=== PATIENT | male | born 1975 | race Caucasian/White ===

== ENCOUNTER 2016-08-28 05:42 | Observation (INO) ==
[2016-08-28] MEDS ORDERED: LR 1,000 ML ONE ×3 (05:56→11:00)
[2016-08-28] MEDS ORDERED: AFRIN NASAL SPRAY ONE (06:13)
[2016-08-28] MEDS ORDERED: BACTROBAN OINTMENT ONE (06:13)
[2016-08-28] MEDS ORDERED: XYLOCAINE 1%/EPI 1:100,000 ONE (06:13)
[2016-08-28] MEDS ORDERED: CLINDAMYCIN ONE (06:13)
[2016-08-28] MEDS ORDERED: NS 1,000 ML ONE (06:14)
[2016-08-28] MEDS ORDERED: REGLAN ONE (06:28)
[2016-08-28] MEDS ORDERED: PEPCID ONE (06:28)
[2016-08-28] MEDS ORDERED: NAROPIN 0.2% ONE (06:49)
[2016-08-28] MEDS ORDERED: BSS OPHTH SOLN ONE (06:50)
[2016-08-28] MEDS ORDERED: CLINDAMYCIN 600 MG/NS 600 MG/50 ML IVPB ONE (07:38)
[2016-08-28] MEDS ORDERED: FENTANYL ONE ×2 (10:45)
[2016-08-28] MEDS ORDERED: VERSED ONE (10:46)
[2016-08-28] MEDS ORDERED: DIPRIVAN 1% ONE (10:46)
[2016-08-28] MEDS ORDERED: LABETALOL (DOSE) ONE ×2 (10:59→14:30)
[2016-08-28] MEDS ORDERED: NEOSTIGMINE ONE (10:59)
[2016-08-28] MEDS ORDERED: LUBRIFRESH PM OPH OINTMENT ONE (10:59)
[2016-08-28] MEDS ORDERED: ZOFRAN ONE (11:00)
[2016-08-28] MEDS ORDERED: ROBINUL ONE (11:00)
[2016-08-28] MEDS ORDERED: XYLOCAINE-MPF 2% ONE (11:00)
[2016-08-28] MEDS ORDERED: QUELICIN (DOSE) ONE (11:00)
[2016-08-28] MEDS ORDERED: DECADRON ONE (11:00)
[2016-08-28] MEDS ORDERED: ZEMURON ONE (11:00)
[2016-08-28] MEDS ORDERED: PHENERGAN ONE (11:00)
[2016-08-28] MEDS ORDERED: APRESOLINE IV PRN (12:47)
[2016-08-28] MEDS: OXY IR PO SCH ×3 (12:51→21:15)
[2016-08-28] MEDS: LR 1,000 ML IV SCH ×2 (13:04→22:29)
--- NOTE | 2016-08-28 13:14 | OPERATIVE NOTE ---
PROCEDURE DATE: 08/28/2016 DATE OF SURGERY: 08/28/2016. PREOPERATIVE DIAGNOSES: 1. Obstructive sleep apnea. 2. Deviated nasal septum. 3. Turbinate hypertrophy. 4. Hypertension. POSTOPERATIVE DIAGNOSES: 1. Obstructive sleep apnea. 2. Deviated nasal septum. 3. Turbinate hypertrophy. 4. Hypertension. PROCEDURE: 1. Nasal septoplasty. 2. Bilateral inferior turbinate submucosal resection. 3. Uvulopalatopharyngoplasty, no complications. ANESTHESIA: General with endotracheal intubation. FINDINGS: 1+ tonsils. DESCRIPTION OF PROCEDURE: The patient was identified, consented, brought to the operating room, placed in supine position where general anesthesia was induced with endotracheal intubation. McIvor mouth gag was placed. The knee was prepped and draped in the usual sterile fashion for tonsillectomy. Right tonsil was grasped with a curved Allis clamp. Medial traction was applied. Anterior mucosal incision performed through which a capsule dissection facilitated removal of the tonsil tissue. Meticulous attention was paid to hemostasis using electrocautery, as well as removal of entire tonsil tissue and preservation of the anterior and posterior tonsil pillar musculature. Contralateral tonsillectomy was performed in similar fashion. The palate was then incised from the apex of the tonsil pillar on the right across to the left, sparing the mucosa enough to prevent velopharyngeal insufficiency. The uvula and the rim of mucosa was removed with downward beveled to preserve more posterior mucosa. The mucosal edges were closed with 4-0 Vicryl simple interrupted stitches from the apex of 1 tonsil across the palate to the other. Ropivacaine was injected into the entire region. Next, the patient was prepped and draped in usual sterile fashion for nasal septoplasty. Lidocaine 1% and 1:100,000 epinephrine was injected into the septal mucosa bilaterally in the inferior turbinate leading edge bilaterally. Left hemitransfixion incision was performed through which bilateral submucoperichondrial flap was elevated off the cartilage. Significant subluxation was corrected with a swinging door technique and mobilization of the caudal cartilage off the maxillary crest and back to the midline. The central septal bony septum was returned to the midline with a combination of techniques, including excision of spur and mobilization of the bone, taking care not to rock the superior portion of the perpendicular plate of the ethmoid. Once this was achieved, the caudal septum was buried between the medial crura and precisely carved pocket. This was stabilized using a 4-0 plain stitch. The inferior turbinate on the left was incised anteriorly and a submucosal microdebrider technique was used to remove an adequate amount of stroma and inferior turbinate bone from the anterior 50% of the inferior turbinate medial and inferior aspect. Outfracture of the turbinate was then performed. Similar process was repeated on the contralateral inferior turbinate with submucosal resection and outfracture as well. Gore splints were applied, one on either side of the septum, and secured with 3-0 transeptal nylon stitch. He tolerated the procedure well. Ointment was applied. He was allowed to recover from anesthesia and transferred to the recovery room in stable condition. cc: Loc Gray MD
[2016-08-28 14:08] LABS: HEMATOCRIT 43.7 % (42.0-52.0); HEMOGLOBIN 15.1 g/dL (14.0-18.0); MCH 30.1 PG (27-31); MCHC 34.6 g/dL (33-37); MCV 87.1 FL (81-99); MPV 10.2 FL (7.4-10.4); RBC 5.02 XMIL (4.7-6.1)
[2016-08-28 14:20] LABS: INR 1.03; PROTIME 10.8 Seconds (9.2-11.7)
[2016-08-28] MEDS ORDERED: APRESOLINE ONE (14:31)
[2016-08-28 14:40] LABS: AGAP 13; ALBUMIN 4.4 g/dL (3.5-5.0); ALKALINE PHOSPHATASE 54 U/L (32-122); BUN 13 mg/dL (8-22); CALCIUM 9.3 mg/dL (8.8-10.2); CHLORIDE 95 mmol/L (98-107); COSMO 270; GOT 38 U/L (10-34); GPT 69 U/L (10-44); POTASSIUM 4.1 mmol/L (3.5-5.1); SODIUM 134 mmol/L (136-145); TCO2 26 mmol/L (25-35); TOTAL BILIRUBIN 0.38 mg/dL (0.20-1.00); TOTAL PROTEIN 6.8 g/dL (6.3-8.3)
--- NOTE | 2016-08-28 15:14 | CONSULTATION ---
DATE OF CONSULTATION: 08/28/2016 DATE OF CONSULTATION: 08/28/2016. CONSULTING PHYSICIAN: Dr. Loc Gray. CONSULTING REASON: Medical management. HISTORY OF PRESENT ILLNESS: Mr. Fisher is a 41-year-old male with a history of hypertension, GERD, hyperlipidemia, and sleep apnea who underwent a UP3 and nasal surgery today by Dr. Gray. He was subsequently placed in the ICU for precaution. He has asked us to follow along for medical management, specifically hypertension management. Currently patient's blood pressure is 122/74, the patient is resting in bed comfortably without any acute distress, his pain is controlled well with pain medications. Surgery was done without complication, he is hemodynamically stable. Prior to surgery he had no complaints. PAST MEDICAL HISTORY: 1. Hypertension. 2. GERD. 3. Hyperlipidemia. 4. Obstructive sleep apnea. PAST SURGICAL HISTORY: He has had a vasectomy. SOCIAL HISTORY: He drinks 1 drink a day. He has no history of alcohol or drug use. He is . is at the bedside. He works at [employer]. FAMILY HISTORY: Noncontributory. HOME MEDICATIONS: Lipitor 20 mg daily. Vibramycin 100 mg b.i.d. Nexium 40 mg daily. Lisinopril 10 mg p.o. daily. ALLERGIES: No known drug allergies. REVIEW OF SYSTEMS: Fourteen-point review of systems obtained and found to be negative with the exception of the HPI. PHYSICAL EXAMINATION: Vital Signs: Blood pressure is 122/74, heart rate is 86, respiratory rate 22, oxygen saturation is 96% on room air, temperature is 97.6 degrees. General: This is a well- developed, well-nourished, male, lying in hospital bed in no acute distress. Neurologic: The patient is awake, alert, and oriented. Follows commands without focal deficits. HEENT: Head is atraumatic, normocephalic. Pupils equal, round, reactive to light. Oral mucosa is moist. Nasal packing and gauze clean, dry, and intact. Neck: Supple. Trachea is midline. Chest: Clear to auscultation bilaterally. CV: Regular rate and rhythm. S1-S2 is noted. No murmurs, gallops, clicks, rubs. GI: Soft, nondistended, nontender. Bowel sounds positive. Extremities: Without edema, clubbing or cyanosis. Pulses palpable bilaterally. DIAGNOSTIC DATA: Labs are pending. ASSESSMENT AND PLAN: 1. Status post uvulopalatopharyngoplasty and nasal surgery: Per Dr. Gray and his team. Continue the antibiotics, early ambulation, and pain control. 2. Hypertension: Will add p.r.n. hydralazine and restart his oral medication once cleared by Dr. Gray. We will add medications as necessary. 3. Hyperlipidemia: Chronic and stable, continue his statin once able to swallow per Dr. Gray. 4. Obstructive sleep apnea: Patient has brought his CPAP. We will defer to Dr. Gray regarding his CPAP use and treatment status post uvulopalatopharyngoplasty. 5. Deep venous thrombosis prophylaxis will be provided with SCDs given his surgery. 6. Further recommendations to follow. We would like to thank you for this consultation. We will follow along with you. Dictated by LIYA William for Geremias Almazan MD cc: LIYA William MD Benjamin W. Light, MD
[2016-08-28] MEDS: DECADRON IV SCH (15:46)
[2016-08-28] MEDS: CLINDAMYCIN 600 MG/NS 600 MG/50 ML IVPB IV SCH (15:46)
[2016-08-29] MEDS: CLINDAMYCIN 600 MG/NS 600 MG/50 ML IVPB IV SCH ×2 (00:35→08:09)
[2016-08-29] MEDS: LR 1,000 ML IV SCH (00:35)
[2016-08-29] MEDS: DECADRON IV SCH ×2 (00:35→07:57)
[2016-08-29] MEDS: OXY IR PO SCH ×3 (00:46→08:05)
[2016-08-29 06:56] LABS: HEMATOCRIT 40.6 % (42.0-52.0); HEMOGLOBIN 14.2 g/dL (14.0-18.0); IMM GRAN# 0.03 X1000 (0.0-0.04); IMM GRAN% 0.3 % (0.0-0.5); LYMPH# 0.57 X1000 (1.2-3.4); MANUAL DIFF NEEDED? YES; MCH 30.2 PG (27-31); MCV 86.4 FL (81-99); MONO# 0.43 X1000 (0.11-0.59); MONO% 3.8 % (1.7-9.3); MPV 10.4 FL (7.4-10.4); NEUT% 90.9 % (42.2-75.2); PLT 256 X1000 (130-400)
[2016-08-29 07:08] LABS: AGAP 15; BUN 15 mg/dL (8-22); CALCIUM 9.2 mg/dL (8.8-10.2); CHLORIDE 100 mmol/L (98-107); COSMO 279; POTASSIUM 4.4 mmol/L (3.5-5.1); SODIUM 138 mmol/L (136-145); TCO2 23 mmol/L (25-35)
[2016-08-29 07:21] LABS: LYMPHS 4 % (21-51); MONO 2 % (1-9)
[2016-08-29 08:28] VITALS: BP 140/70
--- NOTE | 2016-08-29 16:45 | DISCHARGE SUMMARY ---
ADMISSION DATE: 08/28/2016 DISCHARGE DATE: 08/29/2016 CONSULTATIONS: Loc Gray MD. PERTINENT PROCEDURES: 1. Nasal septoplasty and bilateral inferior turbinate submucosal resection. 2. Uvulopalatopharyngoplasty performed by Dr. Gray. HOSPITAL COURSE: Mr. Fisher is a 41-year-old, male with a history of hypertension, GERD, hyperlipidemia with sleep apnea who underwent a UP3 and nasal surgery by Dr. Gray on 08/28/2016. He was placed in the ICU for precaution measures for which the hospitalist was consulted for medical management specifically hypertension management. The patient's blood pressure on admission was 122/74. He was resting comfortably in bed with no acute distress. His pain was controlled with pain medicines. Surgery was done without complications. He was hemodynamically stable. The patient was continued on the prescribed antibiotics as well as early ambulation and pain control. We did add p.r.n. hydralazine and restarted his home medications. Dr. Gray did assess the patient this morning. He is appropriate for discharge on p.o. antibiotics. VITAL SIGNS AT TIME OF DISCHARGE: Temperature 98.1 degrees, heart rate 79, respirations 15, blood pressure is 140/70, O2 is 93%. DISCHARGE MEDICATIONS: 1. Lipitor 20 mg p.o. daily. 2. Doxycycline 100 mg p.o. b.i.d. 3. Nexium 40 mg p.o. daily. 4. Prinivil 10 mg p.o. daily. 5. Oxy IR 10 mg p.o. q.4 hours p.r.n. pain. FOLLOWUP: The patient will need to continue to follow up with Dr. Gray as indicated. He can return to the ED for any worsening of symptoms. Dictated by LIYA Gomez for Geremias Almazan MD cc: MD Babar Montana DO
== END 2016-08-29 10:38 | disposition home or self-care (01) ==
LOC: OR 05:42 → SURHOLD 05:42 → ICU 11:16
PROVIDERS: ADMIT Internal Medicine; ATTEND Otolaryngology Otolaryngology/Facial Plastic Surgery
PROC: [UNRECOGNIZED PROCEDURE] (2016-08-28 07:48)